=== PATIENT | male | born 1955 | race Hispanic/Latino ===

== ENCOUNTER 2022-04-14 18:23 | Inpatient (IN) | payer MEDICARE ==
[~2022-04-14] VITALS: Ht 165.1 cm; Wt 80.5 kg
[~2022-04-14 18:23] MED LIST: AMLO-258 PO; ATOR-2 PO; CARV25TA PO; CLON0.1T PO; CLOP75TA32 PO; FLUO10CA21 PO; FURO40TA5 PO; LOSA100T58 PO; TAMS-1 PO; TRAM50TA4 PO
[2022-04-14 19:18] LABS: BASOPHILS % (AUTO) 0.3 % (0.0-5.0); EOSINOPHILS % (AUTO) 5.6 % (0.0-8.0); HEMATOCRIT 35.6 % (42-54); LYMPHOCYTES % (AUTO) 14.1 % (21.0-51.0); MEAN CORPUSCULAR HEMOGLOBIN 26.5 pg (27.0-33.0); MEAN CORPUSCULAR VOLUME 82.6 fL (79-99); MONOCYTES % (AUTO) 10.1 % (3.0-13.0); NEUTROPHILS % (AUTO) 69.6 % (40.0-77.0); PLATELET COUNT (AUTO) 386 K/uL (130-400); RED BLOOD CELL COUNT(AUTO) 4.31 MIL/uL (4.50-6.20); RED CELL DISTRIBUTION WIDTH 14.6 % (11.0-15.5)
[2022-04-14 19:33] LABS: CREATININE 2.7 mg/dL (0.5-1.5); POTASSIUM 4.1 mmol/L (3.5-5.1)
[2022-04-14 19:37] LABS: INR 0.94 (0.85-1.15); PROTHROMBIN TIME 10.3 SEC (9.6-11.6)
[2022-04-14 19:38] LABS: PARTIAL THROMBOPLASTIN TIME 27.7 SEC (26.3-35.5)
[2022-04-14 19:42] LABS: ALBUMIN 3.1 g/dL (3.5-5.0); BILIRUBIN,TOTAL 0.3 mg/dL (0.2-1.0); TOTAL PROTEIN, SERUM 8.3 g/dL (6.0-8.3)
[2022-04-14 19:53] LABS: B-TYPE NATRIURETIC PEPTIDE 577 pg/mL (0-100)
[2022-04-14] MEDS ORDERED: NITROGLYCERIN 1GM OINT 1 INCH/1GM TD ONE (20:10)
[2022-04-14] MEDS ORDERED: ASPIRIN 81MG CHEW TAB PO ONE (20:10)
[2022-04-14] MEDS ORDERED: VANCOMYCIN 1G 1.5 GM in 0.9% NACL 250ML 250 ML IV ONE (20:30)
[2022-04-14] MEDS ORDERED: ZOSYN 3.375GM +NS 50ML IV SCH (20:30)
[2022-04-14] MEDS: 0.9%NACL 1000ML 1,000 ML IV SCH (22:00)
[2022-04-14] MEDS ORDERED: ACETAMINOPHEN 325 MG TAB PO PRN ×2 (22:00)
[2022-04-14] MEDS ORDERED: ONDANSETRON 4MG INJ IV PRN (22:00)
[2022-04-14] MEDS ORDERED: HYDRALAZINE 20MG/ML VIAL IV PRN (22:00)
[2022-04-15] MEDS: ZOSYN 3.375GM +NS 50ML IV SCH ×3 (03:35→21:19)
[2022-04-15 07:17] LABS: BASOPHILS % (AUTO) 0.3 % (0.0-5.0); EOSINOPHILS % (AUTO) 4.4 % (0.0-8.0); HEMATOCRIT 29.4 % (42-54); MEAN CORPUSCULAR HEMOGLOBIN 26.3 pg (27.0-33.0); MEAN CORPUSCULAR VOLUME 82.1 fL (79-99); MONOCYTES % (AUTO) 8.1 % (3.0-13.0); NEUTROPHILS % (AUTO) 78.6 % (40.0-77.0); PLATELET COUNT (AUTO) 322 K/uL (130-400); RED BLOOD CELL COUNT(AUTO) 3.58 MIL/uL (4.50-6.20); RED CELL DISTRIBUTION WIDTH 14.6 % (11.0-15.5); WHITE BLOOD COUNT (AUTO) 13.3 K/uL (4.8-10.8)
[2022-04-15 07:23] LABS: CREATININE 2.6 mg/dL (0.5-1.5); POTASSIUM 3.9 mmol/L (3.5-5.1)
[2022-04-15 08:55] VITALS: BP 157/61
[2022-04-15] MEDS ORDERED: FAMOTIDINE 20MG VIAL IV SCH (09:00)
[2022-04-15] MEDS: FAMOTIDINE 20MG VIAL IV SCH ×2 (09:00→21:19)
[2022-04-15] MEDS: 0.9%NACL 1000ML 1,000 ML IV SCH (12:33)
[2022-04-15] MEDS ORDERED: ASPIRIN 81 MG EC TAB PO ONE (14:30)
[2022-04-15] MEDS ORDERED: CLOPIDOGREL 75MG TAB PO ONE (14:30)
[2022-04-15] MEDS ORDERED: TRAMADOL HCL 50 MG TABLET PO PRN (15:00)
[2022-04-15] MEDS ORDERED: NON-FORMULARY MEDICATION 1 EACH (Amlodipine Besylate 10 MG) PO SCH (15:13)
[2022-04-15 16:00] VITALS: BP 154/75
[2022-04-15 20:00] VITALS: BP 141/50
[2022-04-15] MEDS: BUPROPION HCL 150 MG TABLET.SA PO SCH (21:18)
[2022-04-15] MEDS: TAMSULOSIN HCL 0.4 MG CAP.ER.24H PO SCH (21:18)
[2022-04-15] MEDS: ATORVASTATIN 40 MG TABLET PO SCH (21:18)
[2022-04-15] MEDS: CARVEDILOL 25 MG TABLET PO SCH (21:29)
[2022-04-15] MEDS: CLONIDINE HCL 0.1 MG TABLET PO SCH (21:29)
[2022-04-16] VITALS: BP 137/51
[2022-04-16 04:00] VITALS: BP 151/57
[2022-04-16] MEDS: ZOSYN 3.375GM +NS 50ML IV SCH (04:04)
[2022-04-16 04:35] LABS: BASOPHILS % (AUTO) 0.3 % (0.0-5.0); EOSINOPHILS % (AUTO) 6.3 % (0.0-8.0); HEMATOCRIT 27.5 % (42-54); LYMPHOCYTES % (AUTO) 13.3 % (21.0-51.0); MEAN CORPUSCULAR HEMOGLOBIN 26.3 pg (27.0-33.0); MEAN CORPUSCULAR VOLUME 82.3 fL (79-99); NEUTROPHILS % (AUTO) 68.7 % (40.0-77.0); PLATELET COUNT (AUTO) 324 K/uL (130-400); RED BLOOD CELL COUNT(AUTO) 3.34 MIL/uL (4.50-6.20); RED CELL DISTRIBUTION WIDTH 14.7 % (11.0-15.5); WHITE BLOOD COUNT (AUTO) 12.5 K/uL (4.8-10.8)
[2022-04-16 04:53] LABS: CREATININE 2.8 mg/dL (0.5-1.5); POTASSIUM 3.8 mmol/L (3.5-5.1)
[2022-04-16 07:30] VITALS: BP 154/64
[2022-04-16] MEDS: CLONIDINE HCL 0.1 MG TABLET PO SCH ×2 (08:39→21:08)
[2022-04-16] MEDS: LOSARTAN 100 MG TABLET PO SCH (08:39)
[2022-04-16] MEDS: CARVEDILOL 25 MG TABLET PO SCH ×2 (08:39→21:09)
[2022-04-16] MEDS: FUROSEMIDE 40 MG TABLET PO SCH (08:39)
[2022-04-16] MEDS: ASPIRIN 81 MG EC TAB PO SCH (08:40)
[2022-04-16] MEDS: BUPROPION HCL 150 MG TABLET.SA PO SCH ×2 (08:40→21:07)
[2022-04-16] MEDS: FAMOTIDINE 20MG VIAL IV SCH ×2 (08:40→21:08)
[2022-04-16] MEDS: CLOPIDOGREL 75MG TAB PO SCH (08:40)
[2022-04-16] MEDS: CLINDAMYCIN IVPB 600MG/50ML 50 ML IV SCH ×2 (10:23→16:32)
[2022-04-16 11:00] VITALS: BP 130/70
[2022-04-16] MEDS: 0.9%NACL 1000ML 1,000 ML IV SCH (14:00)
[2022-04-16 17:05] VITALS: BP 141/69
[2022-04-16] MEDS: ATORVASTATIN 40 MG TABLET PO SCH (21:07)
[2022-04-16] MEDS: TAMSULOSIN HCL 0.4 MG CAP.ER.24H PO SCH (21:07)
[2022-04-17] VITALS: BP 144/59
[2022-04-17] MEDS: CLINDAMYCIN IVPB 600MG/50ML 50 ML IV SCH ×2 (01:31→09:45)
[2022-04-17] MEDS: 0.9%NACL 1000ML 1,000 ML IV SCH (03:20)
[2022-04-17 04:00] VITALS: BP 146/64
[2022-04-17 05:09] LABS: BASOPHILS % (AUTO) 0.4 % (0.0-5.0); EOSINOPHILS % (AUTO) 7.5 % (0.0-8.0); HEMATOCRIT 26.1 % (42-54); LYMPHOCYTES % (AUTO) 17.5 % (21.0-51.0); MEAN CORPUSCULAR HEMOGLOBIN 25.9 pg (27.0-33.0); MEAN CORPUSCULAR HGB CONC 31.8 g/dL (32.0-36.0); MEAN CORPUSCULAR VOLUME 81.6 fL (79-99); MONOCYTES % (AUTO) 13.9 % (3.0-13.0); NEUTROPHILS % (AUTO) 60.4 % (40.0-77.0); PLATELET COUNT (AUTO) 311 K/uL (130-400); RED CELL DISTRIBUTION WIDTH 14.6 % (11.0-15.5); WHITE BLOOD COUNT (AUTO) 11.3 K/uL (4.8-10.8)
[2022-04-17 05:21] LABS: ALBUMIN 2.2 g/dL (3.5-5.0); BILIRUBIN,TOTAL 0.2 mg/dL (0.2-1.0); CREATININE 2.9 mg/dL (0.5-1.5); POTASSIUM 3.6 mmol/L (3.5-5.1); TOTAL PROTEIN, SERUM 6.2 g/dL (6.0-8.3)
[2022-04-17 07:30] VITALS: BP 138/60
[2022-04-17] MEDS ORDERED: CLIN-141 PO (09:03)
[2022-04-17] MEDS: FUROSEMIDE 40 MG TABLET PO SCH (09:46)
[2022-04-17] MEDS: BUPROPION HCL 150 MG TABLET.SA PO SCH (09:46)
[2022-04-17] MEDS: CARVEDILOL 25 MG TABLET PO SCH (09:46)
[2022-04-17] MEDS: LOSARTAN 100 MG TABLET PO SCH (09:46)
[2022-04-17] MEDS: ASPIRIN 81 MG EC TAB PO SCH (09:46)
[2022-04-17] MEDS: FAMOTIDINE 20MG VIAL IV SCH (09:46)
[2022-04-17] MEDS: CLONIDINE HCL 0.1 MG TABLET PO SCH (09:47)
[2022-04-17] MEDS: CLOPIDOGREL 75MG TAB PO SCH (09:47)
[2022-04-17 11:00] VITALS: BP 138/70
[2022-04-17] MEDS ORDERED: FURO20TA6 PO (11:19)
[2022-04-17] MEDS ORDERED: FUROSEMIDE 20MG VIAL IV ONE (13:40)
== END 2022-04-17 16:00 | disposition home or self-care (01) | DRG 603 ==
LOC: EDH 18:23 → EDHIP 21:32 → 4DH 04-15 08:37
PROVIDERS: ADMIT Hospitalist; ATTEND Hospitalist
DX: L03.116 Cellulitis of left lower limb (principal); N18.4 Chronic kidney disease, stage 4 (severe); I97.638 Postprocedural hematoma of a circulatory system organ or structure following other circulatory system procedure; I73.9 Peripheral vascular disease, unspecified; E78.5 Hyperlipidemia, unspecified; I12.9 Hypertensive chronic kidney disease with stage 1 through stage 4 chronic kidney disease, or unspecified chronic kidney disease; Z79.899 Other long term (current) drug therapy; F32.A Depression, unspecified; Z86.73 Personal history of transient ischemic attack (TIA), and cerebral infarction without residual deficits; E78.00 Pure hypercholesterolemia, unspecified; Z79.82 Long term (current) use of aspirin; Y83.2 Surgical operation with anastomosis, bypass or graft as the cause of abnormal reaction of the patient, or of later complication, without mention of misadventure at the time of the procedure; Y82.8 Other medical devices associated with adverse incidents; R07.89 Other chest pain
CPT/HCPCS: 36415; 71045; 78582; 80048; 80053; 82948; 83605; 83880; 84484; 85025; 85378; 85610; 85730; 87040; 87077; 87186; 93005; 93926; 93971; A9540; A9558; G0378; J0360; J2543; J3370; J3490; J7030; J7050